=== PATIENT | male | born 2000 | race Two or more races ===

== ENCOUNTER 2020-10-04 13:12 | Emergency (ER) | payer MEDICAID ==
[~2020-10-04] VITALS: Ht 170.2 cm; Wt 61.2 kg
[2020-10-04 14:14] VITALS: BP 117/78
--- NOTE | 2020-10-04 14:17 | Emergency Room Report ---
History of Present Illness General Chief Complaint: Upper Respiratory Illness Source: Patient Present Illness HPI 20-year-old male presents to the emergency department for evaluation. Patient reports he was sent home from work yesterday for having a elevated temperature reading of 101. Patient reports that temperature was checked after he was sitting outside in his car for some time. Patient states that temperature was repeated several times and the number did go down. Patient states he is not taking any temp-evz-scuqycs pain relief medications or fever reduction medications such as Advil, ibuprofen, naproxen, Tylenol or Excedrin. Patient denies having any upper respiratory symptoms. He denies fatigue, cough, body aches, sore throat. Patient denies any abdominal/GI symptoms such as nausea, vomiting, diarrhea. Denies recent travel. Denies contact with persons who have tested positive for or are under investigation/quarantine for COVID-19. Patient denies experiencing any shortness of breath, chest pain, palpitations or headache. He denies any significant past medical history. Patient reports he is not a smoker and has no asthma history. 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 Patient History Past Medical History: see triage record Past Surgical History: none Pertinent Family History: none Immunizations: UTD Reviewed Nursing Documentation: PMH: Agreed; PSxH: Agreed Nursing Documentation-PMH Past Medical History: No History, Except For Hx Seizures: Yes Review of Systems All Other Systems: negative except mentioned in HPI Physical Exam Vital Signs Date Time Temp Pulse Resp B/P (MAP) Pulse Ox O2 Delivery O2 Flow Rate FiO2 10/04/20 13:26 98.8 90 15 109/76 (87) 100 Room Air Sp02 EP Interpretation: reviewed, normal General Appearance: well appearing, no apparent distress, alert, GCS 15, non- toxic Head: normocephalic, atraumatic Eyes: bilateral eye normal inspection, bilateral eye PERRL ENT: hearing grossly normal, normal voice Neck: full range of motion Respiratory: chest non-tender, lungs clear, normal breath sounds, speaking full sentences Cardiovascular #1: regular rate, rhythm, no edema Gastrointestinal: normal bowel sounds, non tender, soft Rectal: deferred Genitourinary: normal inspection Musculoskeletal: back normal, normal range of motion, gait/station normal, non- tender Neurologic: alert, motor strength/tone normal, oriented x3, sensory intact, responsive, speech normal Psychiatric: judgement/insight normal Lymphatic: no adenopathy Medical Decision Making PA Attestation Dr. Alonzo is my supervising Physician whom patient management has been discussed with. Diagnostic Impression: Primary Impression: Encounter for medical screening examination ER Course 20-year-old male presents to the emergency department for evaluation. Patient reports he was sent home from work yesterday for having a elevated temperature reading of 101. Patient reports that temperature was checked after he was sitting outside in his car for some time. Patient states that temperature was repeated several times and the number did go down. Patient states he is not taking any qwxi-jbv-qwekexx pain relief medications or fever reduction medications such as Advil, ibuprofen, naproxen, Tylenol or Excedrin. Patient denies having any upper respiratory symptoms. He denies fatigue, cough, body aches, sore throat. Patient denies any abdominal/GI symptoms such as nausea, vomiting, diarrhea. Denies recent travel. Denies contact with persons who have tested positive for or are under investigation/quarantine for COVID-19. Patient denies experiencing any shortness of breath, chest pain, palpitations or headache. He denies any significant past medical history. Patient reports he is not a smoker and has no asthma history.. Pt. reports his employer sent him to ED for Eval of COVID-19. Ddx considered but are not limited to URI, meningitis, PNA, Tonsilitis, Otitis media or externa, COVID-19, improperly measured temperature just to name a few. Vital signs: are WNL, pt. is afebrile. Oxygen saturation is 100%. Patient is not tachypneic. H&PE are most consistent with normal physical exam, no acute injury or disease noted at this time. pt. is NAD, NON-toxic, able to answer questions appropriately, pt. is oriented, and no signs of trauma or focal neurological deficits. Pt. is stable for outpatient COVID-19 testing, not necessary on an emergency basis. ORDERS: CXR: Unremarkable ED INTERVENTIONS: Pt. is stable for close outpatient follow up. D/w pt. due to limited availability of COVID-19 tests, current hospital protocols reserves these tests for patients being admitted or who require emergent high risk procedures. Stable patients can complete outpatient testing at any testing facility. This patient was evaluated in the context of the global COVID-19 pandemic, which necessitated consideration that the patient might be at risk for infection with the SARS-COV-2 virus that causes COVID-19. Institutional protocols and algorithms that pertaining to the evaluation of patients at risk for COVID-19 are in a state of rapid change based on information released by multiple regulatory bodies including the CDC and federal and state organizations. These policies and algorithms were followed during the patient's care in the emergency department DISCHARGE: At this time pt. is stable for d/c to home. Will provide printed patient care instructions, and any necessary prescriptions. Care plan and follow up instructions have been discussed with the patient prior to discharge. Chest X-Ray Diagnostic Results Chest X-Ray Diagnostic Results : Chest X-Ray Ordered: Yes # of Views/Limited/Complete: 1 View Indication: Shortness of Breath EP Interpretation: Yes PA Xray: Interpretation reviewed, by supervising MD, and agrees with findings. Interpretation: no consolidation, no effusion, no pneumothorax, no acute cardiopulmonary disease Impression: No acute disease Electronically Signed by: Rosie Jamil PA-C Last Vital Signs Date Time Temp Pulse Resp B/P (MAP) Pulse Ox O2 Delivery O2 Flow Rate FiO2 10/04/20 13:26 98.8 90 15 109/76 (87) 100 Room Air Disposition: HOME, SELF-CARE Condition: Stable Referrals: [facility] [place] [facility] Patient Instructions: Medical Screening Exam Additional Instructions: -I do not identify an emergent condition at this time. Pt. does not require Emergency COVID testing at this time. pt. is stable for NON-Emergency OUTPATIENT COVID-19 TESTING at any appropriate outpatient testing facility IF required by employer for return to work, otherwise Take medications as directed. Follow up with a Primary Care Provider in 3-5 days, even if your symptoms have resolved. --Please review list of primary care clinics, if you do not already have a primary care provider Return sooner to ED if new symptoms occur, or current symptoms become worse. - Please note that this Emergency Department Report was dictated using [employer] laborer technology software, occasionally this can lead to erroneous entry secondary to interpretation by the dictation equipment. Rosie Jamil Oct 04, 2020 14:17
[2020-10-04 15:10] VITALS: BP 128/74
--- NOTE | 2020-10-04 15:20 | Diagnostic Imaging Report ---
Indication: Chest pain Technique: XRAY Chest 1v Comparison: None Findings: Heart size and mediastinal contours are within normal limits for AP technique. There is no focal airspace consolidation, pneumothorax or pleural effusion. There is a 6 mm nodule in the right upper, possibly calcified granuloma. Osseous structures demonstrate no acute abnormality. Impression: No radiographic evidence of acute cardiopulmonary disease.
== END 2020-10-04 15:11 | disposition home or self-care (01) ==
LOC: EMR 14:00
DX: Z13.9 Encounter for screening, unspecified (principal); G40.909 Epilepsy, unspecified, not intractable, without status epilepticus
CPT/HCPCS: 71045; Z7502; 99283